=== PATIENT | female | born 1990 | race Caucasian/White ===

== ENCOUNTER 2024-04-04 17:50 | Observation (INO) ==
[2024-04-04] MEDS ORDERED: IOPAMIDOL 100 ML BOTTLE IV ONE (17:51)
[2024-04-04] MEDS: KETOROLAC 30 MG/ML VIAL IV ONE (18:43)
[2024-04-04] MEDS: METHOCARBAMOL 750 MG TABLET PO ONE (18:43)
[2024-04-04 19:39] LABS: Basophils # (Auto) 0.03 K/mcL (0.00-0.30); Basophils % (Auto) 0.3 % (0.0-2.0); Eosinophils # (Auto) 0.47 K/mcL (0.00-0.70); Hematocrit 42.6 % (34.1-44.9); Hemoglobin 14.4 g/dL (11.2-15.7); Lymphocytes % (Auto) 33.6 % (15.5-49.0); Mean Cell Volume 92.6 fL (80.0-100.0); Mean Corpuscular HGB Conc 33.8 g/dL (31.0-36.0); Mean Platelet Volume 9.6 fL (8.8-12.5); Monocytes # (Auto) 0.93 K/mcL (0.10-0.90); Neutrophils % (Auto) 53.8 % (38.0-78.0); Platelet Count 302 K/mcL (140-440); Red Cell Distribution Width 12.3 % (11.5-14.5); WBC 11.6 K/mcL (4.5-11.0)
[2024-04-04 19:49] LABS: Blood Urea Nitrogen 11 mg/dL (6-20); Calcium 9.7 mg/dL (8.6-10.4); Carbon Dioxide 25 mmol/L (22-30); Chloride 102 mmol/L (96-108); Glomerular Filtration Rate 113; Glucose 81 mg/dL (70-105); Potassium 3.9 mmol/L (3.3-5.1); Sodium 139 mmol/L (133-145)
[2024-04-04 19:56] LABS: INR 0.9 (0.9-1.1); Partial Thromboplastin Time 32.5 sec (20.0-37.0); Prothrombin Time 12.4 sec (11.9-14.5)
[2024-04-04] MEDS: niCARdipine 25 MG in 0.9 % SODIUM CHLORIDE 240 ML IV ONE (19:59)
[2024-04-04] MEDS: HYDROmorphone 1 MG/ML SYRINGE IV ONE (20:01)
[2024-04-04 20:20] LABS: HCG,Serum Negative
[2024-04-04] MEDS ORDERED: ONDANSETRON 4 MG/2 ML VIAL IV ONE (20:57)
[2024-04-04] MEDS: ONDANSETRON 4 MG/2 ML VIAL IV ONE (21:07)
[2024-04-04] MEDS: ASPIRIN 81 MG TAB.CHEW CHEWED ONE (21:23)
[2024-04-04] MEDS ORDERED: niCARdipine 25 MG in 0.9 % SODIUM CHLORIDE 240 ML IV ONE (22:42)
[2024-04-04] MEDS ORDERED: METOCLOPRAMIDE 10 MG/2 ML VIAL IV PRN (22:42)
[2024-04-04] MEDS ORDERED: hydrALAZINE 20 MG/ML VIAL IV PRN (22:42)
[2024-04-04] MEDS ORDERED: SENNOSIDES 1 TABLET PO PRN (22:42)
[2024-04-04] MEDS ORDERED: POTASSIUM CHLORIDE 20 MEQ TABLET PO PRN ×2 (22:42)
[2024-04-04] MEDS ORDERED: POTASSIUM CHLORIDE 40 MEQ in DEXTROSE 5% IN WATER 500 ML IV PRN (22:42)
[2024-04-04] MEDS ORDERED: ACETAMINOPHEN 160 MG/5 ML ORAL.SOL PO PRN (22:42)
[2024-04-04] MEDS ORDERED: IPRATROPIUM/ALBUTEROL 3 ML AMPUL.NEB NEB PRN (22:42)
[2024-04-04] MEDS ORDERED: POLYETHYLENE GLYCOL 3350 17 GM PACKET PO PRN (22:42)
[2024-04-04] MEDS ORDERED: MAGNESIUM SULFATE 2 GM/50 ML BAG IV PRN (22:42)
[2024-04-04] MEDS: amLODIPine 5 MG TABLET PO SCH (22:46)
[2024-04-04] MEDS: amLODIPine 5 MG TABLET ONE (23:24)
[2024-04-04] MEDS: 0.9 % SODIUM CHLORIDE 10 ML SYRINGE IV SCH (23:25)
[2024-04-04] MEDS: 0.9 % SODIUM CHLORIDE 500 ML IV ONE (23:26)
[2024-04-05 00:07] LABS: C-Reactive Protein < 0.30 mg/dL (0.03-0.80)
[2024-04-05] MEDS: HYDROcodone/APAP 5/325MG TABLET PO PRN (00:21)
[2024-04-05] MEDS: HYDROcodone/APAP 5/325MG TABLET PO ONE ×2 (00:28→04:40)
[2024-04-05 07:00] LABS: ALT/SGPT 23 U/L (<40); AST/SGOT 20 U/L (<32); Albumin 4.1 gm/dL (3.2-5.2); Albumin/Globulin Ratio 1.6 (1.0-2.3); Alkaline Phosphatase 38 U/L (39-117); Bilirubin,Direct < 0.2 mg/dL (0-0.3); Bilirubin,Total 0.3 mg/dL (0.1-1.0); Blood Urea Nitrogen 10 mg/dL (6-20); Calcium 8.8 mg/dL (8.6-10.4); Carbon Dioxide 24 mmol/L (22-30); Chloride 104 mmol/L (96-108); Globulin 2.5 gm/dL (2.2-3.7); Glomerular Filtration Rate 113; Glucose 86 mg/dL (70-105); Lactate Dehydrogenase 155 U/L (135-225); Phosphorous 3.1 mg/dL (2.5-4.5); Potassium 4.1 mmol/L (3.3-5.1); Sodium 138 mmol/L (133-145); Triglycerides 227 mg/dL (<150); Uric Acid 5.6 mg/dL (2.5-8.0)
[2024-04-05] MEDS: morphine 4 MG/ML VIAL IV PRN (07:42)
[2024-04-05] MEDS: ONDANSETRON 4 MG/2 ML VIAL IV PRN (07:42)
[2024-04-05] MEDS: DOCUSATE SODIUM 100 MG CAPSULE PO SCH (09:35)
[2024-04-05] MEDS: ASPIRIN 81 MG TAB.CHEW CHEWED SCH (09:35)
[2024-04-05] MEDS: CLOPIDOGREL 300 MG TABLET PO ONE (13:15)
[2024-04-05 17:18] VITALS: TEMP 97.2
[2024-04-05 18:24] VITALS: O2SAT 98
[2024-04-15 13:36] LABS: DNA AB(DS) Crithidia, IFA NEGATIVE (NEGATIVE); SM Antibody <1.0 NEG AI (<1.0 NEGATIVE); SM/RNP Antibody <1.0 NEG AI (<1.0 NEGATIVE); SS-A <1.0 NEG AI (<1.0 NEGATIVE); SS-B <1.0 NEG AI (<1.0 NEGATIVE); Scl-70 <1.0 NEG AI (<1.0 NEGATIVE)
== END 2024-04-05 13:55 | disposition home or self-care (01) ==
LOC: ICU 17:50 → ED 17:50 → ICU 22:36
PROVIDERS: ADMIT Internal Medicine; ATTEND Internal Medicine